=== PATIENT | female | born 1980 | race Caucasian/White ===

== ENCOUNTER 2024-04-16 23:36 | Emergency (ER) | payer OTHER ==
[~2024-04-16] VITALS: Ht 157.5 cm; Wt 68.2 kg
[2024-04-16 23:42] VITALS: BP 115/52; PULSE 66; RESP 18; TEMP 97.8; O2SAT 99
[2024-04-17] MEDS ORDERED: LORA-1000 PO (00:39)
== END 2024-04-17 00:46 | disposition home or self-care (01) ==
LOC: EMS 23:41
DX: R51.9 Headache, unspecified (principal); F41.9 Anxiety disorder, unspecified; R25.3 Fasciculation; G47.00 Insomnia, unspecified
CPT/HCPCS: 99283; Z7502

== ENCOUNTER 2024-05-07 12:23 | Emergency (ER) | payer OTHER ==
[~2024-05-07] VITALS: Ht 157.5 cm; Wt 68.0 kg
[~2024-05-07 12:23] MED LIST: LORA-1000 PO
[2024-05-07 12:41] VITALS: TEMP 98.5
[2024-05-07 12:50] LABS: COVID AG,FIA SOURCE NASAL SWAB
[2024-05-07 13:04] LABS: BASOPHILS % (AUTO) 0.7 % (0.0-2.0); EOSINOPHILS % (AUTO) 0.9 % (1.0-6.0); HEMATOCRIT 40.1 % (36-46); HEMOGLOBIN 13.2 g/dL (12.0-16.0); LYMPHOCYTES # (AUTO) 2.2 K/uL (1.0-4.8); LYMPHOCYTES % (AUTO) 30.2 % (22.0-44.0); MEAN CORPUSCULAR HGB CONC 32.9 G/dL (31.0-37.0); MEAN CORPUSCULAR VOLUME 94 fL (80-100); MONOCYTES # (AUTO) 0.4 K/uL (0.1-1.0); MONOCYTES % (AUTO) 5.5 % (2.0-9.0); NEUTROPHILS # (AUTO) 4.6 K/uL (1.8-7.7); NEUTROPHILS % (AUTO) 62.7 % (40.0-70.0); PLATELET COUNT (AUTO) 246 K/uL (150-450); RED BLOOD CELL COUNT(AUTO) 4.26 MIL/uL (4.00-5.20); RED CELL DISTRIBUTION WIDTH 13.2 % (11.5-14.5); WHITE BLOOD COUNT (AUTO) 7.3 K/uL (4.5-11.0)
[2024-05-07 13:17] LABS: ANION GAP 7 mmol/L (8-16); CALCIUM, TOTAL 8.8 mg/dL (8.8-10.5); CARBON DIOXIDE 29 mmol/L (22-29); CHLORIDE 105 mmol/L (98-107); CREATININE 1.02 mg/dL (0.60-1.30); GLOMERULAR FILTR. RATE CALC 59 mL/min (>60); GLUCOSE,RANDOM 86 mg/dL (70-110); POTASSIUM 3.7 mmol/L (3.5-5.1); SODIUM SERUM 141 mmol/L (136-145); UREA NITROGEN, BLOOD 12 mg/dL (7-18)
[2024-05-07 13:27] LABS: HCG,QUANTITATIVE < 1 mIU/mL (0-6)
[2024-05-07 13:34] LABS: INFLUENZA TYPE A NEGATIVE FOR TYPE A (NEGATIVE); INFLUENZA TYPE B NEGATIVE FOR TYPE B (NEGATIVE); SARS-COV2 (COVID) ANTIGEN,FIA Negative (Negative)
[2024-05-07 13:56] VITALS: BP 102/56; PULSE 78; RESP 20; O2SAT 99
[2024-05-07] MEDS: SODIUM CHLORIDE 0.9% 1,000 ML IV ONE (14:53)
[2024-05-07] MEDS: KETOROLAC TROMETHAMINE 30 MG/ML VIAL IVP ONE (14:54)
[2024-05-07] MEDS: ONDANSETRON HCL 4 MG/2 ML VIAL IVP ONE (14:54)
[2024-05-07 15:00] LABS: APPEARANCE,URINE HAZY (CLEAR); BILIRUBIN,URINE NEGATIVE (NEGATIVE); COLOR,URINE YELLOW (YELLOW); GLUCOSE, URINE (UA) NEGATIVE (NEGATIVE); KETONES,URINE TRACE mg/dL (NEGATIVE); LEUKOCYTE ESTERASE ,URINE NEGATIVE (NEGATIVE); NITRATE,URINE NEGATIVE (NEGATIVE); OCCULT BLOOD,URINE NEGATIVE (NEGATIVE); PH,URINE 5.5 (5.0-8.0); PROTEIN,URINE 30-70 mg/dL (NEGATIVE); SPECIFIC GRAVITIY, URINE 1.037 (1.003-1.030)
[2024-05-07 15:09] LABS: BACTERIA,URINE None Seen /HPF (None Seen); RBC,URINE None Seen /HPF (0-2); WBC,URINE None Seen /HPF (0-5)
[2024-05-07 15:10] LABS: SQUAMOUS EPITHELIAL CELL,UR Few /LPF (None Seen)
[2024-05-07] MEDS ORDERED: AMOX-457 PO (16:54)
[2024-05-07] MEDS ORDERED: IBUP-1492 PO (16:54)
[2024-05-07] MEDS ORDERED: ACET-3385 PO (16:55)
== END 2024-05-07 17:42 | disposition home or self-care (01) ==
LOC: EMS 12:23
DX: J01.90 Acute sinusitis, unspecified (principal); Z98.890 Other specified postprocedural states; Z20.822 Contact with and (suspected) exposure to COVID-19
CPT/HCPCS: 99284; 96374; 71045; 96361; 96375; 87426; 80048; 81001; 84702; 84703; 85025; 87804; 36415; J1885; J2405; J7030

== ENCOUNTER 2024-07-12 12:22 | Inpatient (IN) | payer OTHER ==
[~2024-07-12] VITALS: Ht 157.5 cm; Wt 68.2 kg
[~2024-07-12 12:22] MED LIST changes: +ACET-3385 PO; +ALBUTEROL SULFATE HFA 90 MCG/PUFF 8 GM INHALER IH ONE; +AMOX-457 PO; +DEXAMETHASONE SOD PHOS 4 MG/ML VIAL ONE; +GLYCOPYRROLATE 0.2 MG/ML VIAL ONE; +IBUP-1492 PO; +LIDOCAINE/PF 2% 5 ML SYRINGE IVP ONE; -LORA-1000 PO; +ONDANSETRON HCL 4 MG/2 ML VIAL ONE; +PROPOFOL 1% ISO-OSM 1000 MG/100 ML BOTTLE ONE; +ROCURONIUM BROMIDE 10 MG/ML 5 ML VIAL ONE; +SUGAMMADEX SODIUM 200 MG/2 ML VIAL IVP ONE
[2024-07-12] MEDS ORDERED: NITR-104 PO (12:30)
[2024-07-12 12:49] LABS: APPEARANCE,URINE CLEAR (CLEAR); BILIRUBIN,URINE NEGATIVE (NEGATIVE); COLOR,URINE LIGHT YELLOW (YELLOW); GLUCOSE, URINE (UA) NEGATIVE (NEGATIVE); KETONES,URINE NEGATIVE (NEGATIVE); LEUKOCYTE ESTERASE ,URINE MODERATE (NEGATIVE); NITRATE,URINE NEGATIVE (NEGATIVE); OCCULT BLOOD,URINE MODERATE (NEGATIVE); PH,URINE 6.5 (5.0-8.0); PROTEIN,URINE NEGATIVE (NEGATIVE); SPECIFIC GRAVITIY, URINE 1.019 (1.003-1.030); UROBILINOGEN,URINE <=1.0 mg/dL (<=1.0)
[2024-07-12 12:59] LABS: BACTERIA,URINE Few /HPF (None Seen); SQUAMOUS EPITHELIAL CELL,UR Rare /LPF (None Seen)
[2024-07-12] MEDS: HYDROmorphone HCL 2 MG/ML SYRINGE IVP ONE (13:28)
[2024-07-12] MEDS: SODIUM CHLORIDE 0.9% 2,000 ML IV ONE (13:28)
[2024-07-12] MEDS: ONDANSETRON HCL 4 MG/2 ML VIAL IVP ONE (13:28)
[2024-07-12 13:37] LABS: BASOPHILS % (AUTO) 0.7 % (0.0-2.0); EOSINOPHILS % (AUTO) 1.4 % (1.0-6.0); HEMATOCRIT 38.2 % (36-46); HEMOGLOBIN 12.8 g/dL (12.0-16.0); LYMPHOCYTES # (AUTO) 1.8 K/uL (1.0-4.8); LYMPHOCYTES % (AUTO) 30.6 % (22.0-44.0); MEAN CORPUSCULAR HEMOGLOBIN 31.4 pg (26.0-34.0); MEAN CORPUSCULAR HGB CONC 33.5 G/dL (31.0-37.0); MEAN CORPUSCULAR VOLUME 94 fL (80-100); MONOCYTES # (AUTO) 0.2 K/uL (0.1-1.0); MONOCYTES % (AUTO) 3.2 % (2.0-9.0); NEUTROPHILS # (AUTO) 3.8 K/uL (1.8-7.7); NEUTROPHILS % (AUTO) 64.1 % (40.0-70.0); PLATELET COUNT (AUTO) 283 K/uL (150-450); RED BLOOD CELL COUNT(AUTO) 4.08 MIL/uL (4.00-5.20); RED CELL DISTRIBUTION WIDTH 13.4 % (11.5-14.5); WHITE BLOOD COUNT (AUTO) 5.9 K/uL (4.5-11.0)
[2024-07-12 13:40] LABS: ANION GAP 5 mmol/L (8-16); CALCIUM, TOTAL 8.8 mg/dL (8.8-10.5); CARBON DIOXIDE 30 mmol/L (22-29); CHLORIDE 102 mmol/L (98-107); GLOMERULAR FILTR. RATE CALC > 60 mL/min (>60); GLUCOSE,RANDOM 91 mg/dL (70-110); LIPASE 44 U/L (16-77); POTASSIUM 3.7 mmol/L (3.5-5.1); SODIUM SERUM 137 mmol/L (136-145); UREA NITROGEN, BLOOD 21 mg/dL (7-18)
[2024-07-12 13:43] LABS: ALBUMIN 3.4 g/dL (3.4-5.0); BILIRUBIN,DIRECT 0.1 mg/dL (0.00-0.20); BILIRUBIN,TOTAL 0.4 mg/dL (0.1-1.0); TOTAL PROTEIN, SERUM 7.6 g/dL (6.4-8.2)
[2024-07-12] MEDS: CefTRIAXone 1 GM/DEXTROSE 50 ML IV ONE (14:09)
[2024-07-12 14:18] LABS: LACTIC ACID 1.4 mmol/L (0.4-2.0)
[2024-07-12] MEDS: TAMSULOSIN HCL 0.4 MG CAPSULE PO ONE (16:24)
[2024-07-12] MEDS ORDERED: ZOLPIDEM TARTRATE 5 MG TABLET PO PRN (19:30)
[2024-07-12] MEDS ORDERED: MAGNESIUM HYDROXIDE SUSPENSION 30 ML UDCUP PO PRN (19:30)
[2024-07-12] MEDS ORDERED: ONDANSETRON HCL 4 MG/2 ML VIAL IVP PRN (19:30)
[2024-07-12] MEDS ORDERED: BISACODYL 10 MG RECTAL RECTAL SUPPOSITORY PR PRN (19:30)
[2024-07-12] MEDS ORDERED: IPRATROPIUM BROMIDE 0.5 MG/2.5 ML NEB SOLUTION NEB PRN (19:30)
[2024-07-12] MEDS ORDERED: ALBUTEROL SULFATE 2.5 MG/0.5 ML NEB SOLUTION NEB PRN (19:30)
[2024-07-12] MEDS ORDERED: MORPHINE SULFATE 2 MG/ML SYRINGE IVP PRN (19:30)
[2024-07-12] MEDS: SODIUM CHLORIDE 0.9% 1,000 ML IV SCH (19:46)
[2024-07-12 21:05] VITALS: BP 99/58; PULSE 70; RESP 18; TEMP 98.4; O2SAT 94
[2024-07-13] MEDS: HEPARIN SODIUM,PORCINE 5,000 UNITS/ML VIAL SQ SCH (00:05)
[2024-07-13] MEDS: HYDROCODONE/ACETAMINOPHEN 5-325 MG TABLET PO PRN (00:06)
[2024-07-13 05:36] VITALS: BP 94/52; PULSE 69; RESP 18; TEMP 98.1; O2SAT 99
[2024-07-13 07:50] VITALS: BP 84/46; PULSE 68; RESP 18; TEMP 98; O2SAT 100
[2024-07-13 08:00] VITALS: BP 100/52
[2024-07-13] MEDS: PANTOPRAZOLE SODIUM 40 MG DR TABLET PO SCH (08:00)
[2024-07-13] MEDS: TAMSULOSIN HCL 0.4 MG CAPSULE PO SCH (08:00)
[2024-07-13] MEDS: ACETAMINOPHEN 325 MG TABLET PO PRN (08:01)
[2024-07-13 15:58] VITALS: BP 118/63; PULSE 76; RESP 18; TEMP 97.7; O2SAT 100
[2024-07-13] MEDS: CefTRIAXone 1 GM/DEXTROSE 50 ML IV SCH (17:50)
[2024-07-13 19:47] VITALS: BP 100/63; PULSE 77; RESP 20; TEMP 98.1; O2SAT 100
[2024-07-14 05:05] VITALS: BP 96/56; PULSE 71; RESP 18; TEMP 98.4; O2SAT 98
[2024-07-14 07:51] VITALS: BP 87/43; PULSE 79; RESP 18; TEMP 98.2; O2SAT 99
[2024-07-14] MEDS ORDERED: RINGERS SOLUTION,LACTATED 1,000 ML IV ONE (12:15)
[2024-07-14] MEDS ORDERED: 0.9% SODIUM CHLORIDE 10 ML SYRINGE IVP PRN (12:15)
[2024-07-14] MEDS ORDERED: TRIA15CR49 TP (12:33)
[2024-07-14] MEDS ORDERED: ESOM40CA66 PO (12:33)
[2024-07-14] MEDS ORDERED: SUMA50TA17 PO (12:33)
[2024-07-14] MEDS: SODIUM CHLORIDE 0.9% 2,050 ML IV ONE (12:43)
[2024-07-14 13:00] VITALS: BP 106/54; PULSE 75; RESP 18; TEMP 98.5; O2SAT 99
[2024-07-14 13:11] LABS: BASOPHILS % (AUTO) 0.6 % (0.0-2.0); EOSINOPHILS % (AUTO) 1.3 % (1.0-6.0); HEMATOCRIT 37.6 % (36-46); HEMOGLOBIN 12.2 g/dL (12.0-16.0); LYMPHOCYTES # (AUTO) 2.4 K/uL (1.0-4.8); LYMPHOCYTES % (AUTO) 31.5 % (22.0-44.0); MEAN CORPUSCULAR HEMOGLOBIN 30.6 pg (26.0-34.0); MEAN CORPUSCULAR HGB CONC 32.5 G/dL (31.0-37.0); MEAN CORPUSCULAR VOLUME 94 fL (80-100); MONOCYTES # (AUTO) 0.7 K/uL (0.1-1.0); MONOCYTES % (AUTO) 8.7 % (2.0-9.0); NEUTROPHILS # (AUTO) 4.5 K/uL (1.8-7.7); NEUTROPHILS % (AUTO) 57.9 % (40.0-70.0); PLATELET COUNT (AUTO) 237 K/uL (150-450); RED CELL DISTRIBUTION WIDTH 13.5 % (11.5-14.5); WHITE BLOOD COUNT (AUTO) 7.7 K/uL (4.5-11.0)
[2024-07-14] MEDS: CefTRIAXone SODIUM 2 GM in DEXTROSE 5%-WATER 50 ML IV SCH (13:17)
[2024-07-14 13:24] LABS: ANION GAP 7 mmol/L (8-16); CALCIUM, TOTAL 8.9 mg/dL (8.8-10.5); CARBON DIOXIDE 28 mmol/L (22-29); CHLORIDE 105 mmol/L (98-107); CREATININE 0.66 mg/dL (0.60-1.30); GLOMERULAR FILTR. RATE CALC > 60 mL/min (>60); GLUCOSE,RANDOM 103 mg/dL (70-110); POTASSIUM 3.6 mmol/L (3.5-5.1); SODIUM SERUM 140 mmol/L (136-145); UREA NITROGEN, BLOOD 9 mg/dL (7-18)
[2024-07-14 13:28] LABS: ALANINE AMINOTRANSFERASE 28 U/L (12-78); ALBUMIN 3.1 g/dL (3.4-5.0); ALKALINE PHOSPHATASE 91 U/L (46-116); ASPARTATE AMINOTRANSFERASE 22 U/L (15-37); BILIRUBIN,TOTAL 0.3 mg/dL (0.1-1.0); LACTATE DEHYDROGENASE 141 U/L (81-234); TOTAL PROTEIN, SERUM 7.2 g/dL (6.4-8.2)
[2024-07-14 13:38] LABS: LACTIC ACID 1.7 mmol/L (0.4-2.0)
[2024-07-14 13:40] VITALS: BP 117/64; PULSE 85; RESP 18; TEMP 98.5; O2SAT 99
[2024-07-14 15:17] VITALS: BP 97/49; PULSE 93; RESP 18; TEMP 98.1; O2SAT 100
[2024-07-14] MEDS: SODIUM CHLORIDE 0.9% 250 ML IV ONE (17:56)
[2024-07-14 19:54] VITALS: BP 106/60; PULSE 73; RESP 18; TEMP 97.9; O2SAT 100
[2024-07-14] MEDS: DEXTROSE 5%-LACTATED RINGERS 1,000 ML IV ONE (23:57)
[2024-07-15 05:33] VITALS: BP 103/59; PULSE 77; RESP 18; TEMP 98.4; O2SAT 98
[2024-07-15] MEDS ORDERED: MIDAZOLAM HCL 2 MG/2 ML VIAL ONE (07:00)
[2024-07-15] MEDS ORDERED: FentaNYL CITRATE PF 100 MCG/2 ML VIAL ONE (07:00)
[2024-07-15 08:06] VITALS: BP 113/68; PULSE 65; RESP 18; TEMP 97.7; O2SAT 97
[2024-07-15] MEDS ORDERED: RINGERS SOLUTION,LACTATED 1,000 ML IV ONE (08:17)
[2024-07-15] MEDS: ETHYL ALCOHOL 62% ANTISEPTIC NASAL SANITIZER 0.6 ML AMPUL NASAL ONE (08:52)
[2024-07-15] MEDS: RINGERS SOLUTION,LACTATED 1,000 ML IV ONE (09:00)
[2024-07-15] MEDS: IOHEXOL 240 MG/ML 20 ML VIAL ONE (09:15)
[2024-07-15] MEDS ORDERED: MEPERIDINE-PF 25 MG/ML VIAL IVP PRN (09:30)
[2024-07-15] MEDS ORDERED: FentaNYL CITRATE PF 100 MCG/2 ML VIAL IVP PRN (09:30)
[2024-07-15] MEDS ORDERED: HYDROmorphone HCL 2 MG/ML SYRINGE IVP PRN (09:30)
[2024-07-15 10:33] VITALS: BP 104/61; PULSE 81; RESP 18; TEMP 97.7; O2SAT 98
[2024-07-15] MEDS ORDERED: CEFD300C18 PO (14:50)
[2024-07-15] MEDS ORDERED: OXYGEN THERAPY IH SCH (20:00)
== END 2024-07-15 15:35 | disposition home or self-care (01) | DRG 463 ==
LOC: EMS 12:25 → EDH 17:02 → 6N 20:38 → 4E 07-13 13:37
PROVIDERS: ADMIT Hospitalist; ATTEND Hospitalist
PROC: BT1F1ZZ Fluoroscopy of Left Kidney, Ureter and Bladder using Low Osmolar Contrast (ICD-10-PCS; 2024-07-15)
PROC: 0T778DZ Dilation of Left Ureter with Intraluminal Device, Via Natural or Artificial Opening Endoscopic (ICD-10-PCS; principal; 2024-07-15 09:00)
DX: N13.6 Pyonephrosis (principal); I95.9 Hypotension, unspecified; B96.20 Unspecified Escherichia coli [E. coli] as the cause of diseases classified elsewhere; K44.9 Diaphragmatic hernia without obstruction or gangrene; Z60.3 Acculturation difficulty; M43.17 Spondylolisthesis, lumbosacral region; Z98.84 Bariatric surgery status; Z87.442 Personal history of urinary calculi; Z79.899 Other long term (current) drug therapy
CPT/HCPCS: 74176; 76000; 80048; 80053; 80076; 81001; 83605; 83615; 83690; 84145; 84703; 85025; 85730; 87040; 87077; 87081; 87086; 87186; 99285; G0378; J0696; J1100; J1171; J1644; J2250; J2405; J2704; J3010; J3490; J3535; J7030; J7050; J7060; J7120; Q9966

== ENCOUNTER 2024-08-06 13:05 | Emergency (ER) | payer OTHER ==
[~2024-08-06] VITALS: Ht 157.5 cm; Wt 72.0 kg
[~2024-08-06 13:05] MED LIST changes: -ACET-3385 PO; -ALBUTEROL SULFATE HFA 90 MCG/PUFF 8 GM INHALER IH ONE; -AMOX-457 PO; +CEFD300C18 PO; -DEXAMETHASONE SOD PHOS 4 MG/ML VIAL ONE; -GLYCOPYRROLATE 0.2 MG/ML VIAL ONE; -IBUP-1492 PO; -LIDOCAINE/PF 2% 5 ML SYRINGE IVP ONE; -ONDANSETRON HCL 4 MG/2 ML VIAL ONE; -PROPOFOL 1% ISO-OSM 1000 MG/100 ML BOTTLE ONE; -ROCURONIUM BROMIDE 10 MG/ML 5 ML VIAL ONE; -SUGAMMADEX SODIUM 200 MG/2 ML VIAL IVP ONE; +SUMA50TA17 PO; +TRIA15CR49 TP
[2024-08-06 13:22] VITALS: TEMP 98.6
[2024-08-06 13:49] LABS: APPEARANCE,URINE TURBID (CLEAR); BILIRUBIN,URINE NEGATIVE (NEGATIVE); COLOR,URINE LIGHT ORANGE (YELLOW); GLUCOSE, URINE (UA) NEGATIVE (NEGATIVE); HCG,QUAL URINE NEGATIVE (NEGATIVE); KETONES,URINE TRACE mg/dL (NEGATIVE); LEUKOCYTE ESTERASE ,URINE SMALL (NEGATIVE); NITRATE,URINE NEGATIVE (NEGATIVE); OCCULT BLOOD,URINE LARGE (NEGATIVE); PH,URINE 5.5 (5.0-8.0); PROTEIN,URINE 100-200,SEE CONFIRM mg/dL (NEGATIVE); SPECIFIC GRAVITIY, URINE 1.022 (1.003-1.030); UROBILINOGEN,URINE <=1.0 mg/dL (<=1.0)
[2024-08-06 14:01] LABS: SULFOSALICYLIC ACID,URINE 3+ (Negative)
[2024-08-06 14:03] LABS: BACTERIA,URINE Few /HPF (None Seen); RBC,URINE >100 /HPF (0-2); SQUAMOUS EPITHELIAL CELL,UR Few /LPF (None Seen)
[2024-08-06 16:12] LABS: BASOPHILS % (AUTO) 1.1 % (0.0-2.0); EOSINOPHILS % (AUTO) 1.9 % (1.0-6.0); HEMATOCRIT 37.8 % (36-46); HEMOGLOBIN 12.6 g/dL (12.0-16.0); LYMPHOCYTES # (AUTO) 2.3 K/uL (1.0-4.8); LYMPHOCYTES % (AUTO) 27.4 % (22.0-44.0); MEAN CORPUSCULAR HGB CONC 33.2 G/dL (31.0-37.0); MEAN CORPUSCULAR VOLUME 94 fL (80-100); MONOCYTES # (AUTO) 0.5 K/uL (0.1-1.0); MONOCYTES % (AUTO) 5.9 % (2.0-9.0); NEUTROPHILS # (AUTO) 5.4 K/uL (1.8-7.7); NEUTROPHILS % (AUTO) 63.7 % (40.0-70.0); PLATELET COUNT (AUTO) 292 K/uL (150-450); RED BLOOD CELL COUNT(AUTO) 4.05 MIL/uL (4.00-5.20); RED CELL DISTRIBUTION WIDTH 13.7 % (11.5-14.5); WHITE BLOOD COUNT (AUTO) 8.5 K/uL (4.5-11.0)
[2024-08-06] MEDS: SODIUM CHLORIDE 0.9% 1,000 ML IV ONE (16:12)
[2024-08-06 16:15] LABS: ANION GAP 8 mmol/L (8-16); CALCIUM, TOTAL 8.9 mg/dL (8.8-10.5); CARBON DIOXIDE 28 mmol/L (22-29); CHLORIDE 108 mmol/L (98-107); CREATININE 1.04 mg/dL (0.60-1.30); GLOMERULAR FILTR. RATE CALC 58 mL/min (>60); GLUCOSE,RANDOM 101 mg/dL (70-110); POTASSIUM 4.1 mmol/L (3.5-5.1); SODIUM SERUM 143 mmol/L (136-145); UREA NITROGEN, BLOOD 17 mg/dL (7-18)
[2024-08-06 16:33] LABS: HCG,QUANTITATIVE < 1 mIU/mL (0-6)
[2024-08-06] MEDS: MORPHINE SULFATE 2 MG/ML SYRINGE IVP ONE (18:23)
[2024-08-06] MEDS ORDERED: TRAM50TA5 PO (20:24)
[2024-08-06] MEDS ORDERED: CEPH-558 PO (20:25)
[2024-08-06] MEDS: TraMADol HCL 50 MG TABLET PO ONE (20:27)
[2024-08-06] MEDS: OMEPRAZOLE 20 MG CAPSULE PO ONE (20:27)
[2024-08-06 20:32] VITALS: BP 131/66; PULSE 75; RESP 18; O2SAT 98
== END 2024-08-06 20:35 | disposition home or self-care (01) ==
LOC: EMS 13:05
DX: N23 Unspecified renal colic (principal); Z90.49 Acquired absence of other specified parts of digestive tract
CPT/HCPCS: 99285; 74176; 96374; 96361; 80048; 81001; 84702; 84703; 85025; 36415; J2270; J7030; 81002